=== PATIENT | male | born 2005 | race Two or more races ===

== ENCOUNTER 2024-02-04 03:02 | Emergency (ER) | payer MEDICAID ==
[~2024-02-04] VITALS: Ht 182.9 cm; Wt 90.1 kg
[2024-02-04 03:55] VITALS: BP 118/56; PULSE 58; RESP 13; TEMP 99; O2SAT 96
[2024-02-04] MEDS: TETANUS-DIPTH-ACEL PERTUSSIS 0.5ML SYR Tdap IM ONE (04:00)
[2024-02-04] MEDS: BACITRACIN TOP OINT 1 UD PKG TOP ONE (04:41)
== END 2024-02-04 05:01 | disposition home or self-care (01) ==
LOC: ER 03:02
DX: S81.011A Laceration without foreign body, right knee, initial encounter (principal); T23.231A Burn of second degree of multiple right fingers (nail), not including thumb, initial encounter; X08.8XXA Exposure to other specified smoke, fire and flames, initial encounter; W18.30XA Fall on same level, unspecified, initial encounter; Y93.89 Activity, other specified; Y92.89 Other specified places as the place of occurrence of the external cause; Y99.8 Other external cause status
CPT/HCPCS: 12001; 73110; 73562; 90471; 90715